=== PATIENT | male | born 1965 | race Caucasian/White ===

== ENCOUNTER 2022-04-25 15:11 | Outpatient (CLI) | payer MEDICARE, BC, SELFPAY | END 2022-04-25 15:12 | disposition home or self-care (01) | PROVIDERS: PCP Family Medicine; Visit Provider Family Medicine | DX: Z13.1 Encounter for screening for diabetes mellitus (principal); Z12.5 Encounter for screening for malignant neoplasm of prostate | CPT/HCPCS: 80053; 84153 ==

== ENCOUNTER 2023-06-14 14:47 | Emergency (ER) | payer MEDICARE, BC, SELFPAY ==
[2023-06-14 14:56] VITALS: BP 141/76; PULSE 85; RESP 18; TEMP 36.6; O2SAT 97; BMI 25.8
--- NOTE | 2023-06-14 15:08 | US_ITS ---
Patient: MAXIMO ARIAS Facility:?[facility] Patient ID:?[id number] Site Patient ID:?[id number]. Site :?[id number] Study:?US-Extremity Right LEV-06/14/2023 3:55:52 PM Ordering Physician:Jean Claude Jarrell Final Report: INDICATION: Leg pain and swelling. TECHNIQUE: Ultrasound venous duplex lower right extremity. Compression venous exam was performed using rose-scale, color Doppler, and spectral Doppler analysis. COMPARISON: None. FINDINGS: Deep veins: Sonographic imaging demonstrates the right common femoral, deep femoral, superficial femoral, popliteal, posterior tibial and the contralateral right common femoral veins to be fully compressible with normal color Doppler blood flow. Superficial veins: Greater saphenous vein is fully compressible. No popliteal cyst. IMPRESSION: Normal right lower extremity venous ultrasound, no sign of deep venous thrombosis. Dictated by Madhu Simons MD @ 06/14/2023 4:21:03 PM Signed by:?Madhu Simons MD @06/14/2023 4:21:03 PM (Electronic Signature)
--- NOTE | 2023-06-14 15:09 | ED.GENADULT ---
HPI - General Adult General Chief complaint: Extremity Pain/Injury, Lower Stated complaint: possible blood clot Time Seen by Provider: 06/14/23 14:59 History of Present Illness HPI narrative: Patient is a 58-year-old gentleman who has longstanding chronic low back pain as well as evidence of nerve entrapment and complex regional pain syndrome who presents with evolving neuropathy symptoms in his right leg. He saw his back surgeon for later in the week and he was told that the numbness that extends from the inner thigh on the right down the medial aspect into his foot is not related to his back. He was told to set up an appointment with Neurology for possible EMG which is not available for 2 months. Patient is able walk without any difficulty. He is on large doses of Lyrica and amitriptyline for his chronic neuropathic symptoms. He has had no recent injuries. He was sent over to the emergency room today to make sure he does have a blood clot in his right leg. No bruising no bleeding no swelling. Patient is otherwise having no symptoms of chest pain shortness a breath orthopnea no cough no PND. Related Data Previous Rx's Medication Instructions Recorded tizanidine 4 mg tablet See Rx Instructions PO Q8H PRN 02/02/23 muscle spasticity #60 tabs pregabalin 100 mg capsule 100 mg PO BID #180 caps 02/19/23 pregabalin 150 mg capsule 150 mg PO .hs #90 caps 02/19/23 valacyclovir 1 gram tablet 1,000 mg PO BID #10 tabs 03/29/23 methocarbamol 500 mg tablet 500 mg PO QID #360 tabs 04/10/23 amitriptyline 100 mg tablet 100 mg PO .hs #90 tabs 05/14/23 Allergies Allergy/AdvReac Type Severity Reaction Status Date / Time No Known Allergies Allergy Unknown Unknown Verified 06/14/23 14:56 Review of Systems Status of ROS: Reports: 10 or more systems reviewed and unremarkable except as noted in History and below [facility] Medical History Perirectal abscess ?K61.1 - Rectal abscess (ICD-10) Surgical History Status post lumbar spinal fusion ?Z98.1 - Arthrodesis status (ICD-10) History of total knee replacement ?Z96.659 - Presence of unspecified artificial knee joint (ICD-10) History of total hip replacement ?Z96.649 - Presence of unspecified artificial hip joint (ICD-10) History of bursectomy ?Z98.890 - Other specified postprocedural states (ICD-10) Family History Other High blood pressure Stroke Social History Smoking Status: Never smoker Exam Narrative: Exam Narrative: EXAM GENERAL: Patient appears comfortable and well. EYES: No scleral icterus. LYMPH: No supraclavicular or cervical lymphadenopathy. SKIN: Visible skin seen during exam normal or with benign process only. EXT: No dependent lower extremity pedal edema. No palpable abnormalities no swelling. No pain to palpation. HEART: Regular rate and rhythm with no murmurs, rubs, or gallops. LUNGS: Clear to auscultation bilaterally with no crackles or wheezes. ABD: Soft, non tender, non distended. PSYCH: Good eye contact, speech is not pressured. Neurologic cranial nerves 2-12 grossly intact no focal defects. Const: Vital Signs, click to edit/add: Vital Signs - 24 hr 06/14/23 14:56 Temperature 98 F Pulse Rate [Pulse Oximeter] 85 Respiratory Rate 18 Blood Pressure [Ri ght Upper Arm] 141/76 H Pulse Oximetry 97 Oxygen Delivery Me thod Room Air Course Course ED Course: I did explain to him that we are in a difficult situation. I do think we should proceed with a ultrasound of the lower extremity rule out DVT. Patient is on most of the medications that would be helpful for neuropathic pain. I do think that if we can not to making progress we should try to get his neurology appointment moved up. Vital Signs Vital signs: Initial Vital Signs Temperature 98 F 06/14/23 14:56 Temperature Source Temporal Artery Scan 06/14/23 14:56 Pulse Rate 85 06/14/23 14:56 Respiratory Rate 18 06/14/23 14:56 Blood Pressure 141/76 H 06/14/23 14:56 Blood Pressure Mean 97 06/14/23 14:56 Blood Pressure Position Sitting 06/14/23 14:56 Pulse Oximetry 97 06/14/23 14:56 Oxygen Delivery Method Room Air 06/14/23 14:56 Vital Signs Temperature 98 F 06/14/23 14:56 Pulse Rate 85 06/14/23 14:56 Respiratory Rate 18 06/14/23 14:56 Blood Pressure 141/76 H 06/14/23 14:56 Pulse Oximetry 97 06/14/23 14:56 Oxygen Delivery Method Room Air 06/14/23 14:56 Temperature 98 F 06/14/23 14:56 Pulse Rate 85 06/14/23 14:56 Respiratory Rate 18 06/14/23 14:56 Blood Pressure 141/76 H 06/14/23 14:56 Pulse Oximetry 97 06/14/23 14:56 Oxygen Delivery Method Room Air 06/14/23 14:56 Medical Decision Making MDM Narrative Medical decision making narrative: Patient is a 58-year-old gentleman who comes in today with tingling in his left leg with question of do I have a blood clot. The answer is no he does not have a blood clot. He has had a thorough workup with [facility] neurology/neurosurgeon's office and he is scheduled to have an EMG but not for 2 months. Patient is on stiff doses of pregabalin as well as amitriptyline. He is frustrated He has such a long wait and does have a call in to his primary physician. I do not believe that adding more medication is the right answer. I did give them my card and I recommended that if they can get hold her regular doctor to get a sooner follow-up with neurology to give my office a call will see we can do for him. Differential diagnosis includes but not limited to nerve impingement multiple sclerosis Osteoarthritis neuropathy. Discharge Plan Discharge Clinical Impression: Numbness Patient Disposition: Home, Self-Care Condition: Stable Additional Instructions: Continue current medications. contact your doctor to try to move the neurology appointment up. Contact Dr. Castro of your unable to get a hold of your doctor he will try to get her appointment moved up with Neurology. Activity Level: No Restrictions Discharge Diet: Regular Prescriptions: No Action tizanidine 4 mg tablet See Rx Instructions PO Q8H PRN (Reason: muscle spasticity) Qty: 60 1RF Rx Instructions: 2-4 mg orally every 8 hours PRN; pregabalin 100 mg capsule 100 mg PO BID Qty: 180 1RF pregabalin 150 mg capsule 150 mg PO .hs Qty: 90 1RF valacyclovir 1 gram tablet 1,000 mg PO BID Qty: 10 1RF methocarbamol 500 mg tablet 500 mg PO QID Qty: 360 1RF amitriptyline 100 mg tablet 100 mg PO .hs Qty: 90 0RF Follow Up/Referrals: Wilton Clemente MD [Primary Care Provider] - Stand Alone Forms: [facility] Info Instructions
[2023-06-14 16:04] VITALS: BP 141/76; PULSE 85; RESP 18; TEMP 36.6
== END 2023-06-14 16:06 | disposition home or self-care (01) ==
LOC: ED 16:05
PROVIDERS: Emergency Provider Internal Medicine; PCP Family Medicine
DX: R20.0 Anesthesia of skin (principal); M79.604 Pain in right leg
CPT/HCPCS: 93971; 99283; 99284

== ENCOUNTER 2024-05-02 10:00 | Outpatient (CLI) | payer MEDICARE, BC, SELFPAY | END 2024-05-02 10:01 | disposition home or self-care (01) | LOC: NFLDREF 05-04 00:42 | PROVIDERS: PCP Family Medicine; Referring Provider Family Medicine; Visit Provider Family Medicine | DX: Z13.228 Encounter for screening for other metabolic disorders (principal); Z13.220 Encounter for screening for lipoid disorders; Z12.5 Encounter for screening for malignant neoplasm of prostate | CPT/HCPCS: 80048; 80061; G0103 ==